=== PATIENT | male | born 1960 | race Caucasian/White ===

== ENCOUNTER 2024-04-09 16:19 | Emergency (ER) | payer OTHER ==
[2024-04-09 16:52] VITALS: BP 169/96; PULSE 96; RESP 17; TEMP 98.3; BMI 30.4
[2024-04-09] MEDS ORDERED: ACETAMINOPHEN 500 MG TABLET (FP) ONE (17:39)
[2024-04-09] MEDS ORDERED: AMOX TR/POT CLAV 500MG/125MG TABLETS (FP) ONE (17:39)
[2024-04-09] MEDS: AMOXICILLIN 500 MG CAPSULE (FP) PO ONE (17:43)
[2024-04-09] MEDS: ACETAMINOPHEN 500 MG TABLET (FP) PO ONE (17:43)
== END 2024-04-09 18:09 | disposition home or self-care (01) ==
LOC: JERFT 16:19
DX: H65.91 Unspecified nonsuppurative otitis media, right ear (principal); H92.01 Otalgia, right ear
CPT/HCPCS: 99283-25